=== PATIENT | female | born 1990 | race Caucasian/White ===

== ENCOUNTER → 2018-04-29 10:52 | Outpatient (CLI) | payer MEDICAID, SELFPAY ==
[2018-04-29 14:16] LABS: Vitamin D,25 Hydroxy 21.8 ng/mL (29.95-100.01)
[2018-04-30 15:05] LABS: HPV Reflexed? NOT INDICATED
== END ==
PROVIDERS: Visit Provider Obstetrics & Gynecology
DX: Z01.419 Encounter for gynecological examination (general) (routine) without abnormal findings (principal); Z12.4 Encounter for screening for malignant neoplasm of cervix; E55.9 Vitamin D deficiency, unspecified
CPT/HCPCS: 36415; 82306; 87624; 88175; G0145

== ENCOUNTER 2021-06-15 10:05 | Outpatient (CLI) | payer MEDICARE, MEDICAID, SELFPAY ==
[2021-06-15 11:07] LABS: hCG Titer Quant., Serum < 1 mIU/mL (1-3)
== END 2021-06-15 23:59 | disposition home or self-care (01) ==
LOC: WOBLAB 10:12
PROVIDERS: Visit Provider Obstetrics & Gynecology
DX: Z30.9 Encounter for contraceptive management, unspecified (principal)
CPT/HCPCS: 36415; 84702